=== PATIENT | male | born 1980 | race Caucasian/White ===

== ENCOUNTER 2021-06-03 14:31 | Emergency (ER) | payer OTHER, SELFPAY ==
--- NOTE | ~2021-06-03 | XR_ITS ---
EXAMINATION: XR finger 2nd LT min 2V EXAM DATE: 06/03/2021 15:46 INDICATION: Laceration from table saw rule out fracture . TECHNIQUE: Left 2nd finger frontal, lateral and oblique projections obtained and reviewed. There i s no prior study for comparison. FINDINGS: There are no acute left 2nd finger fractures or dislocations identified. There is no subcu taneous gas. Laceration at the fingertip. There are no radiopaque foreign bodies. IMPRESSION: Left 2nd finger tip laceration. Reviewed, dictated and finalized at location B. CAL ATTENDANT
[2021-06-03 14:37] VITALS: BP 131/81; PULSE 79; RESP 14; TEMP 36.4; O2SAT 100
--- NOTE | 2021-06-03 15:33 | ED.GENADULT ---
HPI - General Adult General Chief complaint: Wound/Laceration Stated complaint: L 2 finger lac Time Seen by Provider: 06/03/21 14:47 Source: patient Mode of arrival: ambulatory Limitations: no limitations History of Present Illness HPI narrative: Patient presents for evaluation of injury to the second digit of the left hand. He indicates he cut himself with a table saw just prior to arrival. He states he initially did not have considerable amount of pain however following cleaning of wound here his pain has increased. Pain is constant, it is aching, initially rated 3 out of 10 in severity, with increased to 7 out of 10 at the present time.. No loss of ROM. No paresthesias. Date of last tetanus unknown. He is not diabetic. He does not smoke. He is right-hand dominant. No additional complaints or concerns. Related Data Home Medications Medication Instructions Recorded Confirmed acetaminophen 500 mg tablet 500 mg PO Q6H PRN 08/07/19 clindamycin phosphate 1 % topical 1 applic TOPICAL BID 08/07/19 gel diphenhydramine HCl 25 mg tablet 25 mg PO Q4-6H PRN tablet 08/07/19 ibuprofen 200 mg tablet 200 mg PO Q6H PRN 08/07/19 melatonin 3 mg tablet 3 mg PO ONCE PRN tablet 08/07/19 Allergies Allergy/AdvReac Type Severity Reaction Status Date / Time No Known Allergies Allergy Verified 08/07/19 11:56 Review of Systems Review of Systems: CONSTITUTIONAL: Denies fever, chills, or sweats. EYES: Denies visual changes, redness, or discharge. ENT: Denies rhinorrhea, congestion, sore throat, or otalgia. CARDIOVASCULAR: Denies chest pain, palpitations, or edema. RESPIRATORY: Denies cough or dyspnea. GASTROINTESTINAL: Denies abdominal pain, nausea, vomiting, or diarrhea. GENITOURINARY: Denies dysuria or hematuria. SKIN: Reports laceration to distal phalanx of 2nd digit of left hand MUSCULOSKELETAL: Reports pain in 2nd digit of left hand NEUROLOGIC: Denies headache, numbness, dizziness, or weakness. PSYCHIATRIC: Denies anxiety or depression. [facility] Past Medical History Medical History (Updated 06/03/21 @ 17:27 by Alvarado Berry, [employer], ) Acne Acne vulgaris History of bronchitis as a child Intractable migraine without status migrainosus Surgical History Surgical History No pertinent past surgical history Family History Family History Mother Family history non-contributory Social History Social History Smoking status: Never smoker Substance use: never Living arrangements: with family Gender identity (if verbalized by the patient): Male Sexual Orientation (if Verbalized by the Patient): Straight or Heterosexual Spiritual care concerns: No Exam Narrative: GENERAL: Well-appearing, well-nourished, and in no acute distress. HEAD: Normocephalic, atraumatic. EYES: PERRLA and EOMI. ENT: Nares clear, no rhinorrhea or epistaxis. Mucous membranes moist. Oropharynx without tonsillar hypertrophy exudate or other lesions. Bilateral TMs pearly carrington nonbulging NECK: Supple. No adenopathy or masses. No carotid bruits or JVD CHEST: Clear to auscultation. No respiratory distress. No wheezes rales or rhonchi HEART: Regular rate and rhythm. No murmur heard. Normal peripheral pulses. ABDOMEN: Soft, nontender, nondistended, normal active bowel sounds. EXTREMITIES: Normal range of motion. No edema. Tenderness to distal phalanx of second digit of left hand SKIN: There is an approximately 1.5 cm complex laceration in a jagged formation to the distal phalanx of the second digit of the left hand with partial avulsion of distal end of nail plate.there is a small amount of sanguinous drainage noted. Skin is otherwise warm, dry, no rash. NEURO: No focal deficits. Alert and oriented x3. PSYCH: Normal mood and affect. Course Course Emergency Co
[2021-06-03] MEDS: TETANUS,DIPHTHERIA,AC PERTUSSIS ADULT (0.5 ML) BOOSTRIX IM (16:11)
[2021-06-03] MEDS: ONDANSETRON HCL ODT 4 MG TABLET PO (16:46)
== END 2021-06-03 17:45 | disposition home or self-care (01) ==
PROVIDERS: Emergency Provider Nurse Practitioner
DX: S61.311A Laceration without foreign body of left index finger with damage to nail, initial encounter (principal); Z23 Encounter for immunization; W31.2XXA Contact with powered woodworking and forming machines, initial encounter
CPT/HCPCS: 12001; 73140; 90471; 90715; 99283; A9270